=== PATIENT | female | born 1980 | race American Indian/Alaskan Native ===

== ENCOUNTER → 2018-03-08 | Outpatient (CLI) | payer BC ==
[~2018-03-08] MED LIST: ACEASPCAF PO; ACET500 PO; ACYC800 PO; ALPR.25 PO; AMOCLA875 PO; AMOX500 PO; AMOX875; AZIT250 PO; BUPR100 PO; BUPR150T2 PO; CLOT1TC TOP; CODBUTASA PO; CYCL10 PO; DIPATR PO; FLUT.05NI; GABA100 PO; GABA600 PO; HYDACE5 PO; HYDACE5325 PO; HYDMOR2 PO; HYDR1TAB94 PO; IBUP600 PO; IBUP800 PO; LOPE2C PO; MELO7.5 PO; METHYLPHENIDATE30 M1 PO; MULVITMINE PO; NEOPOLHYD; Norco 5-325 Ta1 EACH PO; ONDA4ODT MM; OXYACE5T PO; PROM25 PO; Percocet 5-3251 EACH PO; Prednisone20 MG PO; RXHYDMOR2 PO; RXPROM25 PO
== END | disposition home or self-care (01) ==
LOC: LAB SHORT 14:45 → LAB 14:45
PROVIDERS: Obstetrics & Gynecology
DX: Z01.419 Encounter for gynecological examination (general) (routine) without abnormal findings (principal)
CPT/HCPCS: 87624; G0123

== ENCOUNTER 2018-11-26 19:32 | Emergency (ER) | payer BC ==
[~2018-11-26] VITALS: Ht 167.6 cm; Wt 68.0 kg
[~2018-11-26 19:32] MED LIST changes: +METPRE4DP PO
[2018-11-26] MEDS ORDERED: Norco 5-325 Ta1 EACH PO (21:32)
== END 2018-11-26 21:38 | disposition home or self-care (01) ==
LOC: ER 19:32
DX: M54.5 Low back pain (principal); G89.29 Other chronic pain; Z79.899 Other long term (current) drug therapy; F90.9 Attention-deficit hyperactivity disorder, unspecified type
CPT/HCPCS: 96372; 99283-25; J1885

== ENCOUNTER → 2019-06-08 | Outpatient (CLI) | payer BC | END | disposition home or self-care (01) | LOC: LAB 18:22 → LAB SHORT 18:22 | DX: M54.5 Low back pain (principal) | CPT/HCPCS: 87086 ==

== ENCOUNTER 2022-06-06 10:35 | Emergency (ER) | payer BC ==
[~2022-06-06] VITALS: Ht 167.6 cm; Wt 68.0 kg
[2022-06-06] MEDS ORDERED: OXYC10ER PO (10:57)
== END 2022-06-06 11:03 | disposition home or self-care (01) ==
LOC: ER 10:35
DX: Z76.0 Encounter for issue of repeat prescription (principal); Z79.899 Other long term (current) drug therapy
CPT/HCPCS: 99281

== ENCOUNTER 2022-08-24 05:21 | Emergency (ER) | payer BC ==
[~2022-08-24] VITALS: Ht 170.2 cm; Wt 72.6 kg
[~2022-08-24 05:21] MED LIST changes: +OXYC10ER PO
[2022-08-24] MEDS ORDERED: IBUP800 PO (09:19)
[2022-08-24] MEDS ORDERED: Norco 5-325 Ta1 EACH PO (09:19)
[2022-08-24] MEDS ORDERED: CYCL10 PO (09:19)
== END 2022-08-24 09:35 | disposition home or self-care (01) ==
LOC: ER 05:21
DX: M54.10 Radiculopathy, site unspecified (principal); W10.9XXA Fall (on) (from) unspecified stairs and steps, initial encounter; Z79.899 Other long term (current) drug therapy
CPT/HCPCS: 51798; 72100; A9270; J1885

== ENCOUNTER 2025-06-25 00:34 | Emergency (ER) | payer OTHER, BC ==
[~2025-06-25] VITALS: Ht 167.6 cm; Wt 74.8 kg
[2025-06-25 01:16] VITALS: BP 120/87
[2025-06-25] MEDS ORDERED: Ketorolac Tromethamine 15mg Vial IM ONE (01:30)
[2025-06-25] MEDS ORDERED: RX Prepack 6 Tabs Oxycodone 5mg UD ONE (01:30)
[2025-06-26] MEDS ORDERED: DIAZ5 PO (06:23)
== END 2025-06-25 01:42 | disposition home or self-care (01) ==
LOC: ER 00:34
DX: K08.89 Other specified disorders of teeth and supporting structures (principal); M51.26 Other intervertebral disc displacement, lumbar region; Z79.899 Other long term (current) drug therapy
CPT/HCPCS: 96372; 99282-25; A9270; J1885

== ENCOUNTER 2025-06-26 05:03 | Emergency (ER) | payer OTHER, BC ==
[~2025-06-26] VITALS: Ht 167.6 cm; Wt 74.8 kg
[2025-06-26 05:12] VITALS: BP 130/92
[2025-06-26] MEDS ORDERED: DIAZ5 PO (06:23)
[2025-06-26] MEDS ORDERED: RX Prepack 6 Tabs Oxycodone 5mg UD ONE (06:25)
== END 2025-06-26 06:32 | disposition home or self-care (01) ==
LOC: ER 05:03
DX: K08.89 Other specified disorders of teeth and supporting structures (principal); G89.29 Other chronic pain; I10 Essential (primary) hypertension; Z79.899 Other long term (current) drug therapy
CPT/HCPCS: 99282; A9270